=== PATIENT | female | born 1980 | race Caucasian/White ===

== ENCOUNTER → 2020-09-29 | Outpatient (CLI) | payer BC, OTHER | LOC: LAB 08:47 | PROVIDERS: ATTEND Orthopaedic Surgery Sports Medicine | DX: Z01.812 Encounter for preprocedural laboratory examination (principal); Z20.822 Contact with and (suspected) exposure to COVID-19 ==

== ENCOUNTER → 2020-10-03 | Day surgery (SDC) | payer BC, OTHER ==
[~2020-10-03] VITALS: Ht 160 cm; Wt 90.7 kg
--- NOTE | ~2020-10-03 | O ---
[address] [address] OPERATIVE REPORT Name: YURY DOWNING Room #: REG [facility].#: [id number] Admission: 10/03/20 Attend Phys: Kayode Barrera MD Discharge: Date of : 76 Report #: [id number] THIS REPORT FOR: cc: FAM - Family physician unknown FAM - Family physician unknown Kayode Barrera MD ~ DATE OF SERVICE: 10/03/2020 SERVICE: Orthopedics. FACILITY: [facility]. SURGEON: Kayode Barrera MD SWEETBREAD TRIMMER: Colleen Simmons NP PREOPERATIVE DIAGNOSES: 1. Right knee pain. 2. Right knee lateral meniscus tear. 3. Right knee chondromalacia. 4. Status post previous right knee ACL reconstruction. POSTOPERATIVE DIAGNOSES: 1. Right knee pain. 2. Right knee lateral meniscus tear. 3. Right knee chondromalacia. 4. Status post previous right knee ACL reconstruction. PROCEDURE: Right knee arthroscopy with partial lateral meniscectomy and chondroplasty. COMPLICATIONS: None. DRAINS: None. SPECIMENS: None. ANESTHESIA: General. FINDINGS: 1. Partial thickness, posterior horn lateral meniscus tear, and the rim extending to the posterior root detachment, treated with partial meniscectomy. 2. Grade 4 articular cartilage lesion of the posterior aspect of the tibia, the lateral tibial plateau with grade 3 chondromalacia in the focal area of the tibia and grade 2 and 3 of the femur. [address] [address] OPERATIVE REPORT Name: YURY DOWNING Room #: REG [facility]#: [id number] Admission: 10/03/20 Attend Phys: Kayode Barrera MD Discharge: Date of : 76 Report #: [id number] 3. 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 4. Overall intact medial compartment. 5. Intact previous ACL reconstruction with some frayed fibers. 6. Early osteophyte formation noted on the margins. HISTORY: The patient is a 40-year-old female with history of right knee pain that has been present persistent for the past 6+ months and had failed conservative measures including rest, physical therapy, oral medications and modalities, etc. She has longstanding chondromalacia secondary to previous injuries and athletic. She had symptoms attributable to a meniscus tear and had an MRI that confirmed this. She was indicated for surgical treatment after having failed conservative measures and wished to move forward with that option. After risks, benefits, alternatives, and indication for surgery were discussed with her. PROCEDURE IN DETAIL: After right lower extremity was correctly identified in the preoperative holding area as the operative extremity, the patient underwent regional nerve block. She was then taken to the operating room where general anesthesia was induced without complications and was padded appropriately. Prophylactic antibiotics were administered at appropriate time. Tourniquet was applied to right leg. Right lower extremity was then prepped and draped in standard sterile fashion. Timeout procedure performed. Esmarch was used. Tourniquet inflated. Standard anterolateral viewing portal was established followed by anteromedial working portal. Diagnostic arthroscopy revealed the above findings. The shaver was used to perform a synovectomy in the suprapatellar pouch and the gutters. The worse of her chondromalacia of the grade 3 variety was of the patella and/or patellar chondroplasty was performed as was a chondroplasty of the trochlea with a biter and the shaver. The medial compartment was evaluated. The medial meniscus was probed and found to be stable. There was synovitis around the medial meniscus root, but there was no significant tear or pathology here. The PCL was intact. The ACL graft had fibers extending from the tibia to the femur. There were some previously frayed fibers that were treated with debridement. The leg was placed in the [id number] position, the lateral compartment was evaluated. There was a focal area of grade 4 chondromalacia of the posterior portion of the lateral tibial plateau. There were stable margins on this, no significant treatment was indicated. This measured approximately 6 __ 2-3 mm in size. The lateral meniscus root was a thickened and frayed and so a shaver was used to debride this back to healthier tissue margins. The biter was also used to perform partial meniscectomy of the inner rim of the lateral meniscus extending from the midpoint of the posterior horn all the way to the root. Then, the shaver was used to complete the partial meniscectomy, the meniscus was probed. There were no significant further tears noted. Then, the shaver was used to perform a light chondroplasty of the lateral compartment. The meniscal debris was lavaged [address] [address] OPERATIVE REPORT Name: YURY DOWNING Room #: REG [facility] Monika#: [id number] Admission: 10/03/20 Attend Phys: Kayode Barrera MD Discharge: Date of : 76 Report #: [id number] out of the knee. The synovectomy completed, the arthroscopic effusion was drained, instruments were removed. Portal sites were closed. Sterile dressing was applied followed by compression stocking. The patient was awakened from anesthesia and taken to recovery room in stable condition. There were no complications. All counts were recorded as correct. By: [id number] Kayode Barrera MD /nt
[2020-10-03 13:15] VITALS: BP 187/91
== END | disposition home or self-care (01) ==
LOC: PRE 09:03 → OR 10:25 → EDSTATUS 12:14 → OR 12:15
PROVIDERS: ATTEND Orthopaedic Surgery Sports Medicine
DX: M25.561 Pain in right knee (principal); S83.281A Other tear of lateral meniscus, current injury, right knee, initial encounter; M94.261 Chondromalacia, right knee; X58.XXXA Exposure to other specified factors, initial encounter; Y93.89 Activity, other specified; Y92.89 Other specified places as the place of occurrence of the external cause; Y99.8 Other external cause status; Z88.8 Allergy status to other drugs, medicaments and biological substances
CPT/HCPCS: 50010; 50101; 50405; 56527; 57103; 57180; 62110; 62900; 70005